=== PATIENT | female | born 1960 | race Caucasian/White ===

== ENCOUNTER 2020-04-08 13:12 | Outpatient (CLI) | payer BC, SELFPAY ==
--- NOTE | 2020-04-08 13:18 | USCV_ITS ---
Gail Walden Age: 59 Gender: F : 1960 Exam Date: 04/08/2020 13:43 Ordering Phys: Don Cruz MD Technologist: Cecy Corado Exam Location: [facility] [place] Indication: SVT BP: 126 / 97 HR: Rhythm: Sinus Technical Quality: Technically difficult study MEASUREMENTS (Male / Female) Normal Values 2D ECHO LV Diastolic Diameter PLAX 4.9 cm 4.2 - 5.9 / 3.9 - 5.3 cm LV Systolic Diameter PLAX 3.8 cm LV Chamber Size 4.1 cm IVS Diastolic Thickness 1.5 cm 0.6 - 1.0 / 0.6 - 0.9 cm IVS Systolic Thickness 1.5 cm LVPW Diastolic Thickness 1.2 cm 0.6 - 1.0 / 0.6 - 0.9 cm LVPW Systolic Thickness 1.2 cm RV Chamber Size 3.1 cm LVOT Diameter 2.0 cm LV Ejection Fraction 2D Teich 45.1 % LV Ejection Fraction MOD 2C 68.6 % LV Ejection Fraction 2C AL 68.9 % LA Diameter 4.3 cm LA Width 5.3 cm LA Height 2.8 cm RA Width 4.1 cm RA Height 2.7 cm Aorta at Sinotubular Diameter 2.7 cm M-MODE LV Diastolic Diameter MM 4.4 cm 4.2 - 5.9 / 3.9 - 5.3 cm LV Systolic Diameter MM 3.3 cm LV Ejection Fraction MM Teich 51.5 % IVS Diastolic Thickness MM 1.4 cm 0.6 - 1.0 / 0.6 - 0.9 cm IVS Systolic Thickness MM 1.8 cm LVPW Diastolic Thickness MM 1.4 cm 0.6 - 1.0 / 0.6 - 0.9 cm LVPW Systolic Thickness MM 1.6 cm Aortic Annulus Diameter 2.9 cm LA Ao Ratio MM 1.3 MV E Point Septal Separation 0.4 cm DOPPLER AV Peak Velocity 119.0 cm/s LVOT Peak Velocity 139.0 cm/s AV Area Cont Eq vti 3.3 cm squared AV Area Cont Eq pk 3.7 cm squared MV Area PHT 2.4 cm squared Mitral E to A Ratio 0.8 MV E' Velocity 9.0 cm/s Mitral E to MV E' Ratio 10.6 Mitral E to LV E' Lateral Ratio 10.8 Mitral E to LV E' Septal Ratio 10.5 TV Peak E Velocity 46.0 cm/s Right Atrial Pressure 3.0 mmHg PV Peak Velocity 83.0 cm/s FINDINGS Left Ventricle Normal left ventricular size, systolic function and wall thickness, with no regional wall motion abnormalities. Left ventricular ejection fraction is estimated at 60 %. Normal diastolic function. Abnormal septal motion consistent with conduction abnormality. Right Ventricle Normal right ventricular size and systolic function. Tricuspid valve regurgitant jet is inadequate for estimation of right ventricular systolic pressure. Right Atrium Normal right atrial size. Left Atrium Normal left atrial size. Mitral Valve Mild mitral annular calcification. No mitral valve stenosis. No significant mitral valve regurgitation. Aortic Valve Aortic valve not well visualized. No aortic valve stenosis. No aortic valve regurgitation. Tricuspid Valve Tricuspid valve not well visualized. Trace tricuspid valve regurgitation. Pulmonic Valve Pulmonic valve not well visualized. No pulmonary valve stenosis. No significant pulmonary valve regurgitation. Pericardium No pericardial effusion. Aorta Normal size aortic root and proximal ascending aorta. CONCLUSIONS 1. Normal left ventricular size, systolic function and wall thickness, with no regional wall motion abnormalities. Left ventricular ejection fraction is estimated at 60 %. Normal diastolic function. 2. No significant valvular abnormality. 3. No pericardial effusion. 4. No prior similar studies to compare. Torrie Wesley MD (Electronically Signed) Final Date: 11 April 2020 18:00 S
== END 2020-04-08 13:13 | disposition home or self-care (01) ==
LOC: RAD 13:15
PROVIDERS: Family Provider Family Medicine; Visit Provider Family Medicine
DX: I47.1 Supraventricular tachycardia (principal)
CPT/HCPCS: 93306

== ENCOUNTER 2021-11-09 10:18 | Outpatient (CLI) | payer OTHER, SELFPAY ==
--- NOTE | 2021-11-09 10:24 | XR_ITS ---
WS: [id number] Right hip, 2 views, AP pelvis, 11/09/2021 Clinical Data: BACK PAIN R HIP PAIN Comparison: None. Findings: The right hip show severe osteoarthritic narrowing with erosion, sclerosis, cyst formation, narrowing and acetabular lip. The left hip is unremarkable. There are no fractures or dislocations. The SI joints and pubic symphysis are unremarkable. XR/XR hip RT 2-3V wo/w pel* [id number] Impression: Severe osteoarthritis of right hip. Tonnis classification: grade 3: large cysts in femoral head/acetabulum or joint space obliteration/severe narrowing or severe femoral head deformity vs AVN
--- NOTE | 2021-11-09 10:24 | XR_ITS ---
WS: [id number] Lumbar spine, 3 views, 11/09/2021 Clinical Data: BACK PAIN R HIP PAIN Comparison: Lumbar spine, 12/06/2006. Findings: No compression fractures or subluxation is seen. There is disc space narrowing at L4-L5 and L5-S1. Th e transverse processes and SI joints are normal. XR/XR lumbar spine 2-3V* [id number] Impression: Degenerative disc narrowing at L4-L5 and L5-S1.
== END 2021-11-09 10:19 | disposition home or self-care (01) ==
LOC: RAD 10:20
PROVIDERS: PCP Family Medicine; Visit Provider Dermatology
DX: Z02.71 Encounter for disability determination (principal); M54.50 Low back pain, unspecified; M16.11 Unilateral primary osteoarthritis, right hip
CPT/HCPCS: 72100; 73502

== ENCOUNTER → 2023-01-08 10:34 | Outpatient (BNVA) | payer MEDICARE, SELFPAY | PROVIDERS: PCP Family Medicine; Referring Provider Family Medicine; Visit Provider Specialist | DX: M16.11 Unilateral primary osteoarthritis, right hip (principal); M87.051 Idiopathic aseptic necrosis of right femur | CPT/HCPCS: 73502; 99204 ==

== ENCOUNTER 2024-07-24 20:43 | Emergency (ER) | payer MEDICARE, SELFPAY ==
[2024-07-24 20:47] VITALS: BP 101/64; PULSE 113; RESP 18; TEMP 36.7; O2SAT 99
[2024-07-24 21:21] VITALS: BP 113/63; PULSE 102; O2SAT 94
--- NOTE | 2024-07-24 21:21 | ED_ITS ---
HPI - Weakness 2 General: Chief complaint: Weakness Stated complaint: weakness, light headed, dizzy Time Seen by Provider: 07/24/24 21:04 History of Present Illness: Presents to the ER complaining of being weak lightheaded dizzy. She says she saw her PCP Dr. Cruz through [facility] yesterday for the symptoms and he did some lab work on her and called her today and was post to send in the transfusion order him but for some reason it was not sent in. I did review patient's lab work her hemoglobin was 5.2 her iron and ferritin was pretty much nonexistent. Patient is denying any hematuria melena hematochezia or other various ways to lose blood. She says she has been feeling tired and rundown for some time. She has never had to have a transfusion in the past. She is on no anticoagulation and also is on Protonix Review of Systems 2 General: Reports: 10 or more systems reviewed and unremarkable except in HPI and below Physical Exam 2 Const: COMMON NORMALS: no acute distress, average body habitus, patient oriented x3, no limitations, healthy appearing, alert and well nourished HENMT: COMMON NORMALS: normocephalic, atraumatic, hearing grossly normal bilaterally, external ears normal, Normal external nose present and moist oral mucous membranes HEAD & SCALP: normocephalic and atraumatic NOSE: Normal external nose present EXTERNAL EAR: Yes external ears normal Neck/C-Spine: COMMON NORMALS: no JVD Chest: COMMONS NORMALS: normal inspection of the chest and normal palpation of entire chest wall Resp: COMMON NORMALS: normal respiratory effort, No retractions, No use of accessory muscles and clear to auscultation bilaterally AUSCULTATION: clear to auscultation bilaterally Cardio: COMMON NORMALS: no JVD, regular rhythm, S1 normal heart sound present, S2 normal heart sound present, No gallops present (Cardio), No clicks present (Cardio), No murmurs present (Cardio) and No rub (Cardio); negative for regular rate (Mildly tachycardic) RATE: abnormal rate (Mildly tachycardic) RHYTHM: regular rhythm HEART SOUNDS: S1 normal heart sound present and S2 normal heart sound present GI: COMMON NORMALS: Normal to inspection, nondistended, normoactive bowel sounds present, Soft to palpation, non-tender, No hepatosplenomegaly present and no masses PALPATION: Yes Soft to palpation and Yes No hepatosplenomegaly present Neuro: COMMON NORMALS: patient oriented x3 SENSORIUM/ORIENTATION: Yes alert Course 2 Vital Signs: Vital signs: Vital Signs Temperature 98.4 F 07/25/24 03:11 Pulse Rate 80 07/25/24 02:05 Respiratory Rate 17 07/25/24 03:11 Blood Pressure 127/67 07/25/24 03:11 Pulse Oximetry 98 07/25/24 03:11 Oxygen Delivery Me thod Room Air 07/25/24 01:30 MDM - Weakness Medical Decision Making Lab work was obtained CBC CMP, hemoglobin 5.0 hematocrit 20.6, patient's lab on her phone showed she is very iron deficient. Patient is understanding that she needs blood. Patient be transfused 2 units of packed cells. Patient does not want to stay in the hospital for further evaluation treatment as this is already undertaken by Dr. Cruz through [facility]. After we transfused 2 units we will recheck an H&H anticipated to be up in the sevens and then we will probably discharge patient. Medical Records I reviewed the patient's medical records. Lab Data I reviewed the patient's lab results. 07/24/24 21:36 07/24/24 21:36 Laboratory Results WBC 11.99 10^3/uL (3.29-11.43) H 07/24/24 21:36 RBC 3.22 10^6/uL (3.85-5.65) L 07/24/24 21:36 Hgb 5.00 g/dL (11.27-16.99) L* 07/24/24 21:36 Hct 20.6 % (36-47) L* 07/24/24 21:36 MCV 64.0 fl (85-98) L 07/24/24 21:36 MCH 15.5 pg (27-33) L 07/24/24 21:36 MCHC 24.3 g/dL (30-55) L 07/24/24 21:36 RDW 20.7 % (12.1-15.1) H 07/24/24 21:36 Plt Count 741 10^3/cmm (157-399) H 07/24/24 21:36 MPV 8.6 fL (7.4-10.4) 07/24/24 21:36 Neut % (Auto) 68.9 % 07/24/24 21:36 Lymph % (Auto) 15.2 % 07/24/24 21:36 Edgar % (Auto) 10.0 % 07/24/24 21:36 Eos % (Auto) 4.8 % 07/24/24 21:36 Baso % (Auto) 0.8 % 07/24/24 21:36 Neut # (Auto) 8.25 10^3/uL (1.8-7.7) H 07/24/24 21:36 Lymph # (Auto) 1.8 10^3/uL (0.8-4.8) 07/24/24 21:36 Edgar # (Auto) 1.2 10^3/uL (0.2-0.9) H 07/24/24 21:36 Eos # (Auto) 0.6 10^3/uL (0.0-0.8) 07/24/24 21:36 Baso # (Auto) 0.1 10^3/uL (0.0-0.1) 07/24/24 21:36 Nucleated RBC % (auto) 0.4 % 07/24/24 21:36 Nucleated RBCs # 0.1 /100WBC 07/24/24 21:36 Sodium 136 mmol/L (136-145) 07/24/24 21:36 Potassium 4.2 mmol/L (3.5-5.1) 07/24/24 21:36 Chloride 100 mmol/L (98-107) 07/24/24 21:36 Carbon Dioxide 25 mmol/L (22-29) 07/24/24 21:36 Anion Gap 15.2 (5-19) 07/24/24 21:36 BUN 25 mg/dL (8-23) H 07/24/24 21:36 Creatinine 1.3 mg/dL (0.5-0.9) H 07/24/24 21:36 GFR Calculation 41.4 mL/min (90-130) L 07/24/24 21:36 Glucose 94 mg/dL (65-115) 07/24/24 21:36 Calculated Osmolality 286 mOsm/kg (285-295) 07/24/24 21:36 Calcium 9.2 mg/dL (8.5-10.5) 07/24/24 21:36 Total Bilirubin 0.3 mg/dL (0.15-1.2) 07/24/24 21:36 AST 9 U/L (0-32) 07/24/24 21:36 ALT < 5 U/L (0-33) 07/24/24 21:36 Alkaline Phosphatase 74 U/L (35-105) 07/24/24 21:36 Total Protein 8.0 g/dL (6.6-8.7) 07/24/24 21:36 Albumin 3.9 g/dL (3.5-5.2) 07/24/24 21:36 Globulin 4.1 g/dL (1.3-4.6) 07/24/24 21:36 Blood Type B Positive 07/24/24 21:36 Rho(D) Type Rh positive 07/24/24 21:36 Antibody Screen Negative 07/24/24 21:36 Crossmatch See Detail 07/24/24 21:36 No radiology studies performed this visit Discharge Plan Discharge Patient Disposition: Home Clinical Impression: Iron (Fe) deficiency anemia Qualifiers: Iron deficiency anemia type: unspecified iron deficiency Qualified Code(s): D 50.9 - Iron deficiency anemia, unspecified Condition: Stable Prescriptions: New ferrous sulfate [Iron (ferrous sulfate)] 325 mg (65 mg iron) tablet 325 mg PO BID Qty: 60 0RF No Action albuterol sulfate 90 mcg/actuation HFA aerosol inhaler 1 inh inhalation QID gabapentin 300 mg capsule 300 mg PO DAILY hydrocodone-acetaminophen 10-325 mg tablet 1 tab PO Q6H PRN budesonide-formoterol [Symbicort] 80-4.5 mcg/actuation HFA aerosol inhaler 1 inh inhalation BID hydrochlorothiazide 25 mg tablet 25 mg PO DAILY diclofenac sodium 75 mg tablet,delayed release (DR/EC) 75 mg PO BID cyclobenzaprine 10 mg tablet 10 mg PO TID Trintellix 10 mg tablet 10 mg PO DAILY pantoprazole 40 mg tablet,delayed release (DR/EC) 40 mg PO DAILY losartan 50 mg tablet 50 mg PO DAILY Discharge Orders: Discharge ED (Routine); Ordered 07/25/24 Ordered By: Barry Berg Referrals: Don Cruz MD [Primary Care Provider] - 1 week Patient Instructions: Anemia (ED), Blood Transfusion (DC), Iron Rich Diet (ED) Activity Restrictions/Additional Instructions: You are transfused 2 units of packed red blood cells, this should help with the lightheadedness weakness and fatigue. You will still be anemic and your iron was very low. You have been prescribed iron to take by mouth however your doctor may want you to end up doing an iron infusion by IV. Please follow-up with him within the next 7 days for further evaluation and treatment. Coding Level of Care Code ED [employer] for Chg Fwd Related Data Home Medications Medication Instructions Recorded Confirmed albuterol sulfate 90 mcg/actuation 1 inh inhalation QID 01/08/23 01/08/23 aerosol inhaler budesonide-formoterol HFA 80 1 inh inhalation BID 01/08/23 01/08/23 mcg-4.5 mcg/actuation aerosol inhaler (Symbicort) cyclobenzaprine 10 mg tablet 10 mg PO TID 01/08/23 01/08/23 diclofenac sodium 75 mg 75 mg PO BID 01/08/23 01/08/23 tablet,delayed release gabapentin 300 mg capsule 300 mg PO DAILY 01/08/23 01/08/23 hydrochlorothiazide 25 mg tablet 25 mg PO DAILY 01/08/23 01/08/23 hydrocodone 10 mg-acetaminophen 1 tab PO Q6H PRN 01/08/23 01/08/23 325 mg tablet losartan 50 mg tablet 50 mg PO DAILY 01/08/23 01/08/23 pantoprazole 40 mg tablet,delayed 40 mg PO DAILY 01/08/23 01/08/23 release vortioxetine 10 mg tablet 10 mg PO DAILY 01/08/23 01/08/23 (Trintellix) Previous Rx's Medication Instructions Recorded ferrous sulfate 325 mg (65 mg 325 mg PO BID #60 tabs 07/25/24 iron) tablet (Iron (ferrous sulfate)) Allergies Allergy/AdvReac Type Severity Reaction Status Date / Time citalopram [From Celexa] Allergy ALGY-Swell Verified 07/24/24 20:54 Lip/Tongue/Throat
[2024-07-24 21:43] LABS: Basophils # 0.1 10^3/uL (0.0-0.1); Basophils % 0.8 %; Eosinophils # 0.6 10^3/uL (0.0-0.8); Eosinophils % 4.8 %; Lymphocytes # 1.8 10^3/uL (0.8-4.8); Lymphocytes % 15.2 %; Mean Corpuscular HGB Conc 24.3 g/dL (30-55); Mean Corpuscular Hemoglobin 15.5 pg (27-33); Mean Platelet Volume 8.6 fL (7.4-10.4); Monocytes # 1.2 10^3/uL (0.2-0.9); Neutrophils # 8.25 10^3/uL (1.8-7.7); Neutrophils % 68.9 %; Nucleated Red Blood Cells # 0.1 /100WBC; Nucleated Red Blood Cells % 0.4 %; Platelet Count 741 10^3/cmm (157-399); Red Blood Count 3.22 10^6/uL (3.85-5.65); Red Cell Distribution Width 20.7 % (12.1-15.1); White Blood Count 11.99 10^3/uL (3.29-11.43)
[2024-07-24 21:59] LABS: Hematocrit 20.6 % (36-47)
[2024-07-24 22:06] LABS: Alanine Aminotransferase < 5 U/L (0-33); Albumin Level 3.9 g/dL (3.5-5.2); Alkaline Phosphatase 74 U/L (35-105); Anion Gap 15.2 (5-19); Aspartate Amino Transferase 9 U/L (0-32); Blood Urea Nitrogen 25 mg/dL (8-23); Calcium 9.2 mg/dL (8.5-10.5); Carbon Dioxide 25 mmol/L (22-29); Chloride 100 mmol/L (98-107); Creatinine Clr Calc Pharmacy 51.8258; Globulin 4.1 g/dL (1.3-4.6); Glomerular Filtration Rate 41.4 mL/min (90-130); Glucose 94 mg/dL (65-115); Osmolality Calculated 286 mOsm/kg (285-295); Potassium 4.2 mmol/L (3.5-5.1); Sodium 136 mmol/L (136-145); Total Bilirubin 0.3 mg/dL (0.15-1.2)
--- NOTE | 2024-07-24 22:08 | PC.NURSE ---
MD Berg made aware of critical labs.
[2024-07-24 23:00] VITALS: BP 120/54; PULSE 92; RESP 15; TEMP 36.9; O2SAT 98
[2024-07-24 23:09] VITALS: BP 120/54; PULSE 92; RESP 15; TEMP 36.9; O2SAT 98
[2024-07-24 23:26] VITALS: BP 106/59; PULSE 87; RESP 15; TEMP 37
[2024-07-24 23:41] VITALS: BP 128/61; RESP 16; TEMP 37; O2SAT 97
[2024-07-25] VITALS (9 sets, daily range): BP systolic 110–145; BP diastolic 58–88; PULSE 80–88; RESP 14–18; TEMP 36.8–36.9; O2SAT 94–99
[2024-07-25] MEDS: sodium chloride 0.9% 100 mL Bag 50 ML IV (03:16)
== END 2024-07-25 03:54 | disposition home or self-care (01) ==
PROVIDERS: Emergency Provider Emergency Medicine; PCP Family Medicine
DX: D50.9 Iron deficiency anemia, unspecified (principal)
CPT/HCPCS: 36415; 36430; 80053; 85025; 86850; 86900; 86920; 99284; P9016

== ENCOUNTER 2024-08-29 08:00 | Oncology outpatient (recurring) (ONCR) | payer MEDICARE, SELFPAY ==
[2024-08-20] MEDS: iron sucrose 200 MG in sodium chloride 0.9% (100 ml) 100 ML 220 MG IV (10:54)
[2024-08-20 11:38] VITALS: BP 124/74; PULSE 86; RESP 16; TEMP 36.5; O2SAT 98
[2024-08-22 08:10] VITALS: BP 109/71; PULSE 101; RESP 16; TEMP 36.9
[2024-08-22] MEDS: iron sucrose 200 MG in sodium chloride 0.9% (100 ml) 100 ML 220 MG IV (08:21)
[2024-08-25] MEDS: iron sucrose 200 MG in sodium chloride 0.9% (100 ml) 100 ML 220 MG IV (08:32)
[2024-08-25 09:14] VITALS: BP 133/74; PULSE 86; RESP 16; TEMP 36.2; O2SAT 97
[2024-08-27 08:05] VITALS: BP 136/83; PULSE 106; RESP 17; TEMP 36.6; O2SAT 95
[2024-08-27] MEDS: iron sucrose 200 MG in sodium chloride 0.9% (100 ml) 100 ML 220 MG IV (08:15)
[2024-08-27 08:50] VITALS: BP 137/55; PULSE 90; RESP 16; TEMP 36.4; O2SAT 97
[2024-08-29 08:12] VITALS: BP 151/98; PULSE 100; RESP 16; TEMP 36.3; O2SAT 98
[2024-08-29] MEDS: iron sucrose 200 MG in sodium chloride 0.9% (100 ml) 100 ML 220 MG IV (08:21)
[2024-08-29 08:58] VITALS: BP 138/78; PULSE 77; RESP 16; TEMP 36.6; O2SAT 99
== END 2024-09-04 23:59 | disposition home or self-care (01) ==
PROVIDERS: PCP Family Medicine; Visit Provider Family Medicine
DX: D50.9 Iron deficiency anemia, unspecified (principal); Z79.899 Other long term (current) drug therapy; Z53.9 Procedure and treatment not carried out, unspecified reason
CPT/HCPCS: 96365; J1756